=== PATIENT | female | born 1965 | race Caucasian/White ===

== ENCOUNTER → 2017-10-26 | Outpatient (CLI) | payer OTHER | END | disposition home or self-care (01) | LOC: US 07:39 | DX: I71.4 Abdominal aortic aneurysm, without rupture (principal); I70.8 Atherosclerosis of other arteries; R01.1 Cardiac murmur, unspecified | CPT/HCPCS: 76770; 93306 ==

== ENCOUNTER 2021-06-09 20:24 | Emergency (ER) | payer OTHER ==
[~2021-06-09] VITALS: Ht 149.9 cm; Wt 79.0 kg
[~2021-06-09 20:24] MED LIST: AZAT50TA20 PO; CHOL100013 PO; CYAN-25 PO; ESTR1PAT10 TD; LEVO50TA5 PO; MULT-445 PO; OMEG500C3 PO; PARO10TA57 PO
[2021-06-09 21:18] VITALS: BP 153/72
--- NOTE | 2021-06-09 21:38 | PHYS DOC ---
Past Medical History Past Medical History: High Cholesterol Additional Past Medical Histor: "NODULES ON MY LUNGS" Past Surgical History: Hysterectomy Additional Past Surgical Histo: "LUNG BIOPSY" Smoking Status: Never Smoker Alcohol Use: None General Adult EDM: Chief Complaint: CHEST PAIN HPI: HPI: 55-year-old female with a history of obesity and high cholesterol presents the emergency department complaining of chest pain for the last 3 days is intermittent, located in the left side of her chest, occasionally radiating to the left shoulder and arm area. She denies any palliative or provoking factors that specifically caused the chest pain or make it better. She admits to liking spicy food and occasionally having GERD in the past. She saw her doctor earlier today who diagnosed her with hyper cholesterolemia. She denies any current chest pain. The patient denies nausea, vomiting, fever, chills, shortness of breath, abdominal pain, urinary symptoms, cough, recent trauma, or any other complaints. The patient denies any history of blood clots in his legs or his lungs, no recent travel including no long trips in the car or flights, no family history of blood clots, no personal history of any cancers or clotting disorders. Review of Systems: Review of Systems: Review of systems is otherwise negative except for what was mentioned in HPI. Heart Score: C/O Chest Pain: Yes HEART Score for Chest Pain: HEART Score for Chest Pain Response (Comments) Value History Moderately Suspicious 1 ECG Normal 0 Age >45 - < 65 1 Risk Factors 1 or 2 Risk Factors 1 Troponin < Normal Limit 0 Total 3 Allergies: Allergies: Allergies Coded Allergies Type Severity Reaction Last Updated Verified amoxicillin Allergy Mild 01/02/14 No clavulanic acid Allergy Mild 01/02/14 No erythromycin base Allergy Mild 01/02/14 No fentanyl Allergy Mild 01/02/14 No Physical Exam: PE: Constitutional: No acute distress, non-toxic appearance. HENT: Atraumatic, bilateral external ears normal, nose normal. Eyes: PERRLA, EOMI, conjunctiva normal, no discharge. Neck: Normal range of motion, supple, no stridor. Cardiovascular: Heart rate regular rhythm. 2+ radial pulses Lungs & Thorax: No respiratory distress, symmetrical expansion. Abdomen: Soft, no tenderness Skin: Warm, dry. Extremities: No tenderness, no cyanosis, ROM intact, no edema. Neurologic: Alert and oriented X 3, normal motor function, normal sensory function, no focal deficits noted. Non ataxic gait. GCS 15. Psychologic: Affect normal, judgment normal, mood normal. Current Patient Data: Labs: Laboratory Tests Test 06/09/21 21:30 White Blood Count 6.1 x10^3/uL (4.0-11.0) Red Blood Count 4.21 x10^6/uL (3.50-5.40) Hemoglobin 13.3 g/dL (12.0-15.5) Hematocrit 38.0 % (36.0-47.0) Mean Corpuscular Volume 90 fL (79-100) Mean Corpuscular Hemoglobin 32 pg (25-35) Mean Corpuscular Hemoglobin Concent 35 g/dL (31-37) Red Cell Distribution Width 13.4 % (11.5-14.5) Platelet Count 258 x10^3/uL (140-400) Neutrophils (%) (Auto) 71 % (31-73) Lymphocytes (%) (Auto) 19 % (24-48) Monocytes (%) (Auto) 7 % (0-9) Eosinophils (%) (Auto) 2 % (0-3) Basophils (%) (Auto) 1 % (0-3) Neutrophils # (Auto) 4.3 x10^3/uL (1.8-7.7) Lymphocytes # (Auto) 1.1 x10^3/uL (1.0-4.8) Monocytes # (Auto) 0.4 x10^3/uL (0.0-1.1) Eosinophils # (Auto) 0.1 x10^3/uL (0.0-0.7) Basophils # (Auto) 0.0 x10^3/uL (0.0-0.2) Sodium Level 141 mmol/L (136-145) Potassium Level 3.5 mmol/L (3.5-5.1) Chloride Level 103 mmol/L (98-107) Carbon Dioxide Level 27 mmol/L (21-32) Anion Gap 11 (6-14) Blood Urea Nitrogen 12 mg/dL (7-20) Creatinine 0.8 mg/dL (0.6-1.0) Estimated GFR (Cockcroft-Gault) 75.0 Glucose Level 95 mg/dL (70-99) Calcium Level 9.2 mg/dL (8.5-10.1) Troponin I Quantitative < 0.017 ng/mL (0.000-0.055) YD-Hor-W-Type Natriuretic Peptide 17 pg/mL (0-124) Vital Signs: Vital Signs Date Time Temp Pulse Resp B/P (MAP) Pulse Ox O2 Delivery O2 Flow Rate FiO2 06/09/21 21:18 98.7 81 16 153/72 (99) 97 Room Air 98.7 EKG: EK: Normal sinus rhythm rate of 77, no ST-T wave changes, no ectopic beats, normal axis, normal SD, QRS, and QTc intervals. Impression: Normal EKG. interpreted by mePonce D.O. Radiology/Procedures: Radiology/Procedures: PROCEDURE: PORTABLE CHEST 1V XR CHEST 1V History: Reason: chest pain / Spl. Instructions: / History: Comparison: None. Findings: No consolidation or pleural effusion. Normal heart size. No pneumothorax. Postop changes left upper lung. Impression: 1. No acute cardiopulmonary process. Electronically signed by: Nikolay Ramsey DO (06/09/2021 10:17 PM) Course & Med Decision Making: Course & Med Decision Making Patient with heart score 3, negative first troponin, pain going on for several days, does not appear to be in acute chest pain at this time. Patient will be discharged with return precautions. Wells' Criteria for Pulmonary Embolism from [email or web address] on 06/10/2021 Clinical signs and symptoms of DVT > 0 = No PE is #1 diagnosis OR equally likely > 0 = No Heart rate > 100 > 0 = No Immobilization at least 3 days OR surgery in the previous 4 weeks > 0 = No Previous, objectively diagnosed PE or DVT > 0 = No Hemoptysis > 0 = No Malignancy w/ treatment within 6 months or palliative > 0 = No Departure Departure Impression: Primary Impression: Chest pain Disposition: 01 HOME / SELF CARE / HOMELESS Condition: STABLE Referrals: ELISEO CROSS (PCP) Patient Instructions: Chest Pain (Nonspecific), [id number] Additional Instructions: You were seen in the emergency department for chest pain. Your exam and testing did not show any acute abnormality that warranted admission today but does not rule out underlying cardiovascular disease. You need to follow up with your primary doctor and/or cardiology for further evaluation. Return to the Emergency Department immediately, day or night, if you have worsening or continued chest pain, shortness of breath, nausea, sweating during chest pain, trouble breathing, chest pain with exertion (climbing stairs or walking for example), leg swelling or for any other concerns. PONCE KERN DO Jun 09, 2021 21:38
[2021-06-09 21:42] LABS: BASO % 1 % (0-3); EOS # 0.1 x10^3/uL (0.0-0.7); EOS % 2 % (0-3); HEMOGLOBIN 13.3 g/dL (12.0-15.5); LYMPH # 1.1 x10^3/uL (1.0-4.8); LYMPH % 19 % (24-48); MEAN CORPUSCULAR HEMOGLOBIN 32 pg (25-35); MEAN CORPUSCULAR HGB CONC 35 g/dL (31-37); MEAN CORPUSCULAR VOLUME 90 fL (79-100); MONO # 0.4 x10^3/uL (0.0-1.1); MONO % 7 % (0-9); NEUT # 4.3 x10^3/uL (1.8-7.7); NEUT % 71 % (31-73); PLATELET COUNT 258 x10^3/uL (140-400); RED BLOOD COUNT 4.21 x10^6/uL (3.50-5.40); RED CELL DISTRIBUTION WIDTH 13.4 % (11.5-14.5); WHITE BLOOD COUNT 6.1 x10^3/uL (4.0-11.0)
[2021-06-09 21:51] LABS: CALCIUM 9.2 mg/dL (8.5-10.1); CREATININE 0.8 mg/dL (0.6-1.0); POTASSIUM 3.5 mmol/L (3.5-5.1)
[2021-06-09] MEDS ORDERED: FAMOTIDINE 20 MG/2 ML VIAL IVP ONE (22:00)
--- NOTE | 2021-06-09 22:19 | RAD ---
XR CHEST 1V History: Reason: chest pain / Spl. Instructions: / History: Comparison: None. Findings: No consolidation or pleural effusion. Normal heart size. No pneumothorax. Postop changes left upper l salazar. Impression: 1. No acute cardiopulmonary process. Electronically signed by: Nikolay Ramsey DO (06/09/2021 10:17 PM) [facility]
== END 2021-06-10 00:38 | disposition home or self-care (01) ==
LOC: ER 20:24
DX: R07.89 Other chest pain (principal); E78.00 Pure hypercholesterolemia, unspecified; E66.9 Obesity, unspecified; Z68.35 Body mass index [BMI] 35.0-35.9, adult; Z88.1 Allergy status to other antibiotic agents; Z88.8 Allergy status to other drugs, medicaments and biological substances
CPT/HCPCS: 36415; 71045; 80048; 83880; 84484; 85025; 96374; 99284; J3490